=== PATIENT | male | born 1950 | race Caucasian/White ===

== ENCOUNTER 2020-06-02 19:51 | Inpatient (IN) | payer MEDICARE, MEDICAID ==
[~2020-06-02] VITALS: Ht 157.5 cm; Wt 99.8 kg
[2020-06-02 20:54] LABS: BASOPHILS % 0.3 % (0.0-2.0); EOSINOPHILS % 0.3 % (0.0-5.0); HEMATOCRIT. 31.7 % (42.0-52.0); HEMOGLOBIN. 10.8 g/dL (14.0-18.0); MEAN CORPUSCULAR VOLUME 99.9 fL (80.0-94.0); MEAN PLATELET VOLUME 7.8 fl (7.4-10.4); MONOCYTES % 6.4 % (2.0-8.0); PLATELET 103 x1000/uL (130-400); RED BLOOD CELL COUNT 3.17 mill/uL (4.7-6.1)
[2020-06-02 20:58] LABS: CHLORIDE 107 mEq/L (98-107)
[2020-06-02 21:04] LABS: ETHANOL BLOOD < 10 mg/dL
[2020-06-02] MEDS ORDERED: LEVOFLOXACIN 500MG PREMIX 100 ML IV ONE (22:30)
[2020-06-02] MEDS ORDERED: ACETAMINOPHEN 325MG TABLET PO PRN (22:45)
[2020-06-02] MEDS ORDERED: CLONIDINE 0.1MG TABLET PO PRN (22:45)
[2020-06-02] MEDS ORDERED: IPRATROPIUM/ALBUTEROL 0.5-3(2.5)MG/3ML NEB NEB PRN (22:45)
[2020-06-02] MEDS ORDERED: MAGNESIUM/ALUMINUM HYDROXIDE/SIMETHICONE 30ML UDC PO PRN (22:45)
[2020-06-02] MEDS ORDERED: LORAZEPAM 2MG/ML CPJ IV PRN (22:45)
[2020-06-02] MEDS ORDERED: HYDROCODONE/ACETAMINOPHEN 5/325MG TABLET PO PRN (22:45)
[2020-06-02] MEDS ORDERED: MORPHINE SULFATE 2 MG/ML CPJ (NOT FOR IM USE) IV PRN (22:45)
[2020-06-02 23:01] LABS: CLARITY URINE CLEAR (CLEAR); COLOR URINE YELLOW (YELLOW); KETONES URINE NEGATIVE (NEGATIVE); LEUKOCYTE ESTERASE URINE NEGATIVE (NEGATIVE); NITRITE URINE NEGATIVE (NEGATIVE); OCCULT BLOOD URINE NEGATIVE (NEGATIVE); PROTEIN URINE NEGATIVE (NEGATIVE); SPECIFIC GRAVITY URINE 1.022 (1.005-1.030); UROBILINOGEN URINE 0.2 E.U./dL (0.2-1.0)
[2020-06-02] MEDS ORDERED: IOHEXOL-350 100 ML BOTTLE ONE (23:08)
[2020-06-02 23:11] LABS: *AMPHETAMINES SCREEN URINE NEGATIVE (NEGATIVE); *BARBITURATES SCREEN URINE NEGATIVE (NEGATIVE); *BENZODIAZEPINES SCREEN URINE NEGATIVE (NEGATIVE); *COCAINE SCREEN URINE NEGATIVE (NEGATIVE); METHADONE URINE SCREEN NEGATIVE (NEGATIVE)
[2020-06-02 23:12] LABS: CANNABINOID URINE SCREEN NEGATIVE (NEGATIVE); OPIATES URINE SCREEN NEGATIVE (NEGATIVE); PHENCYCLIDINE URINE SCREEN NEGATIVE (NEGATIVE)
[2020-06-02] MEDS: SODIUM CHLORIDE 0.9% 1,000 ML IV SCH (23:41)
[2020-06-03] MEDS ORDERED: MVI, ADULT NO.1 10 ML, FOLIC ACID 1 MG, THIAMINE HCL 100 MG in SODIUM CHLORIDE 0.9% 1,0... IV NR (02:00)
[2020-06-03 04:34] LABS: BASOPHILS % 0.4 % (0.0-2.0); EOSINOPHILS % 0.7 % (0.0-5.0); HEMATOCRIT. 26.9 % (42.0-52.0); HEMOGLOBIN. 9.2 g/dL (14.0-18.0); LYMPHOCYTES % 24.6 % (20.0-50.0); MEAN CORPUSCULAR HEMOGLOBIN 34.1 pg (28.0-32.0); MEAN CORPUSCULAR VOLUME 99.4 fL (80.0-94.0); MEAN PLATELET VOLUME 7.8 fl (7.4-10.4); MONOCYTES % 7.6 % (2.0-8.0); NEUTROPHILS % 66.7 % (40.0-76.0); PLATELET 85 x1000/uL (130-400); RED CELL DISTRIBUTION WIDTH 16.1 % (11.6-14.6)
[2020-06-03 04:42] LABS: CHLORIDE 112 mEq/L (98-107)
[2020-06-03 04:50] LABS: PHOSPHORUS 2.6 mg/dL (2.5-4.9)
[2020-06-03 04:53] LABS: CREATINE KINASE 30 IU/L (39-308)
[2020-06-03 08:00] VITALS: BP 99/59
[2020-06-03] MEDS: ENOXAPARIN 40MG/0.4ML SYR SUBCUT SCH (09:00)
[2020-06-03] MEDS: THIAMINE HCL 100MG TABLET PO SCH (10:53)
[2020-06-03 12:00] VITALS: BP_SYST 122; BP_DIAS 72; BP_DIAS 79
[2020-06-03] MEDS: MAGNESIUM OXIDE 400MG TABLET PO SCH (14:00)
[2020-06-03] MEDS ORDERED: MAGNESIUM 2 G PREMIX 50 ML IV SCH (15:00)
[2020-06-03 16:00] VITALS: BP 100/65
[2020-06-03] MEDS: SODIUM CHLORIDE 0.9% 1,000 ML IV SCH (18:28)
[2020-06-03 20:00] VITALS: BP 100/64
[2020-06-03] MEDS ORDERED: PNEUMOCOCCAL 23-VAL P-SAC VAC 0.5 ML IM ONE (20:15)
[2020-06-03 21:09] LABS: CREATINE KINASE 40 IU/L (39-308)
[2020-06-03 21:10] LABS: CREATINE KINASE MB FRACTION 1.2 ng/mL (0.5-3.6)
[2020-06-04] VITALS: BP 101/60
[2020-06-04 04:00] VITALS: BP 98/54
[2020-06-04 06:50] LABS: BASOPHILS % 0.5 % (0.0-2.0); EOSINOPHILS % 3.8 % (0.0-5.0); HEMATOCRIT. 26.3 % (42.0-52.0); HEMOGLOBIN. 9.1 g/dL (14.0-18.0); LYMPHOCYTES % 22.3 % (20.0-50.0); MEAN CORPUSCULAR HEMOGLOBIN 34.9 pg (28.0-32.0); MEAN CORPUSCULAR VOLUME 100.2 fL (80.0-94.0); MEAN PLATELET VOLUME 7.6 fl (7.4-10.4); MONOCYTES % 7.7 % (2.0-8.0); NEUTROPHILS % 65.7 % (40.0-76.0); PLATELET 72 x1000/uL (130-400); RED BLOOD CELL COUNT 2.62 mill/uL (4.7-6.1); RED CELL DISTRIBUTION WIDTH 16.2 % (11.6-14.6)
[2020-06-04 07:03] LABS: CHLORIDE 113 mEq/L (98-107)
[2020-06-04 08:00] VITALS: BP 107/48
[2020-06-04] MEDS: THIAMINE HCL 100MG TABLET PO SCH (08:33)
[2020-06-04] MEDS: MAGNESIUM OXIDE 400MG TABLET PO SCH (08:33)
[2020-06-04] MEDS: ENOXAPARIN 40MG/0.4ML SYR SUBCUT SCH (08:35)
[2020-06-04 12:00] VITALS: BP 92/49
[2020-06-04 15:16] VITALS: BP 92/49
== END 2020-06-04 16:35 | disposition home or self-care (01) | DRG 73 ==
LOC: ER 19:51 → 8WST 22:19 → EDBEDREQ 23:42 → ENRESERV 06-03 10:19
PROVIDERS: ADMIT Internal Medicine Nephrology; ATTEND Internal Medicine Nephrology
DX: G90.8 Other disorders of autonomic nervous system (principal); E43 Unspecified severe protein-calorie malnutrition; J18.9 Pneumonia, unspecified organism; Z68.41 Body mass index [BMI] 40.0-44.9, adult; D64.9 Anemia, unspecified; D69.6 Thrombocytopenia, unspecified; I10 Essential (primary) hypertension; I45.10 Unspecified right bundle-branch block; R07.9 Chest pain, unspecified; E66.9 Obesity, unspecified; I25.10 Atherosclerotic heart disease of native coronary artery without angina pectoris; I25.2 Old myocardial infarction; Z82.3 Family history of stroke; Z82.49 Family history of ischemic heart disease and other diseases of the circulatory system; Z79.899 Other long term (current) drug therapy; Z86.16 Personal history of COVID-19
CPT/HCPCS: 36415; 71045; 71275; 80048; 80053; 80305; 80320; 81003; 82550; 82553; 83735; 83880; 84100; 84484; 85025; 93005; 93306; 97161; 99285; J1650; J1956; J3411; J3475; J3490; J7030; J7040; Q9967; G0480